=== PATIENT | female | born 1995 | race Caucasian/White ===

== ENCOUNTER 2017-09-20 16:02 | Emergency (ER) | payer OTHER ==
[~2017-09-20] VITALS: Ht 157.5 cm; Wt 60.9 kg
[2017-09-20] MEDS ORDERED: PRENTAB40 PO (16:10)
[2017-09-20] MEDS ORDERED: NS 1,000 ML IV ONE (17:15)
[2017-09-20] MEDS ORDERED: ACETAMINOPHEN 325 MG TAB PO ONE (17:15)
[2017-09-20] MEDS ORDERED: METOCLOPRAMIDE INJ 10MG/2ML VIAL (J2765) IV ONE (17:15)
[2017-09-20 17:28] LABS: BASO % 0.6 % (0.0-1.0); EOS # 0.1 10^3/uL (0.0-0.50); IMMATURE GRANULOCYTE % 0.2 % (0-0); LYMPH # 1.3 10^3/uL (1.5-6.5); MEAN CORPUSCULAR HEMOGLOBIN 29.4 pg (27.0-33.0); MEAN CORPUSCULAR HGB CONC 34.5 g/dl (32.0-36.5); MEAN CORPUSCULAR VOLUME 85.3 fl (80.0-96.0); MONO # 0.3 10^3/uL (0.0-0.8); NEUTROPHILS # 3.2 10^3/uL (1.8-7.7); NEUTROPHILS % 66.2 % (36.0-66.0); PLATELET COUNT, AUTOMATED 177 10^3/uL (150-450); WHITE BLOOD COUNT 4.8 10^3/uL (4.0-10.0)
[2017-09-20 18:07] LABS: ANION GAP 11 MEQ/L (8-16); BLOOD UREA NITROGEN 8 MG/DL (7-18); CALCIUM LEVEL 9.1 MG/DL (8.5-10.1); CARBON DIOXIDE LEVEL 25 MEQ/L (21-32); CHLORIDE LEVEL 103 MEQ/L (98-107); CREATININE FOR GFR 0.68 MG/DL (0.55-1.02); GLOMERULAR FILTRATION RATE > 60.0 (>60); GLUCOSE, FASTING 88 MG/DL (70-105); HCG, SERUM QUANTITATIVE 10997 MIU/ML; POTASSIUM SERUM 4.1 MEQ/L (3.5-5.1); SODIUM LEVEL 139 MEQ/L (136-145)
--- NOTE | 2017-09-20 18:49 | REP ---
FIRST TRIMESTER OB AND ENDOVAGINAL PROBE ULTRASOUND: 09/20/2017. Clinical history: Spotting in this first trimester . By dates she is 4 weeks 5 days. Transabdominal and endovaginal probes were utilized. Bladder is empty and cannot be evaluated. The uterus retroflexed and measures 7.6 x 5.1 x 6.3 cm. There is gestational sac with a mean sac diameter 8.4 mm corresponding to 5 weeks and 4 days. On EV probe within the sac is a yolk sac, but no definitive pole. There is no evidence of a subchorionic bleed. Right ovary is 2.8 x 2.5 x 2 cm with Doppler resistive index of 0.64. The left ovary is 3.4 x 2.3 x 3.1 cm with Doppler resistive index 0.46. On the left, there is a presumed corpus luteum cyst measuring 2 x 2 x 1.7 cm. There is no free fluid or solid adnexal mass. Impression: 1. Gestational sac noted with pole not evident, but a yolk sac seen. Findings suggest early IUP or pole not yet visible. By gestational sac size, 5 weeks 4 days, by LMP 4 weeks 5 days. Other possibilities would include blighted ovum or missed spontaneous . An ectopic cannot be entirely excluded at this time, although no compelling evidence for it. 2. Corpus luteum cyst left ovary 2 x 2 x 1.7 cm. Correlation with beta HCG and appropriate follow-up at appropriate interval with HCG and ultrasound may be helpful. Signed by Amol Villa MD 09/20/2017 08:47 P
[2017-09-20 19:20] VITALS: BP 111/53
== END 2017-09-20 19:24 | disposition home or self-care (01) ==
LOC: M ED 16:02
DX: O99.351 Diseases of the nervous system complicating pregnancy, first trimester (principal); G44.209 Tension-type headache, unspecified, not intractable; O26.851 Spotting complicating pregnancy, first trimester; Z3A.01 Less than 8 weeks gestation of pregnancy
CPT/HCPCS: 76801; 76817; 80048; 81001; 81025; 84702; 85025; 86901; 93976; 96374; 99284; J2765

== ENCOUNTER → 2017-09-23 | Outpatient (CLI) | payer OTHER ==
[~2017-09-23] MED LIST: PRENTAB40 PO
== END ==
LOC: M LAB 09:44
PROVIDERS: ATTEND Advanced Practice Midwife
DX: N91.2 Amenorrhea, unspecified (principal)

== ENCOUNTER 2017-12-26 09:04 | Emergency (ER) | payer OTHER ==
[2017-12-26] MEDS: ACETAMINOPHEN 325 MG TAB PO (09:38)
== END 2017-12-26 11:48 | disposition home or self-care (01) ==
LOC: M ED 09:04
DX: O9A.212 Injury, poisoning and certain other consequences of external causes complicating pregnancy, second trimester (principal); S39.91XA Unspecified injury of abdomen, initial encounter; W18.39XA Other fall on same level, initial encounter; Y92.014 Private driveway to single-family (private) house as the place of occurrence of the external cause; M25.551 Pain in right hip; M54.5 Low back pain; Z3A.18 18 weeks gestation of pregnancy
CPT/HCPCS: 76815

== ENCOUNTER 2018-05-04 18:21 | Outpatient (CLI) | payer OTHER | END 2018-05-04 19:55 | disposition home or self-care (01) | LOC: M LDO 18:21 | DX: O47.1 False labor at or after 37 completed weeks of gestation (principal); Z3A.37 37 weeks gestation of pregnancy | CPT/HCPCS: 59025 ==

== ENCOUNTER 2018-05-11 12:55 | Inpatient (IN) | payer OTHER ==
[2018-05-11] MEDS: LACTATED RINGER'S 1000 ML IV (14:05)
[2018-05-11 14:14] LABS: HEMATOCRIT 36.3 % (36.0-47.0); HEMOGLOBIN 11.7 g/dl (12.0-15.5); MEAN CORPUSCULAR HGB CONC 32.2 g/dl (32.0-36.5); MEAN CORPUSCULAR VOLUME 83.8 fl (80.0-96.0); PLATELET COUNT, AUTOMATED 143 10^3/uL (150-450); RED BLOOD COUNT 4.33 10^6/uL (4.00-5.40); RED CELL DISTRIBUTION WIDTH 14.4 % (11.5-14.5); WHITE BLOOD COUNT 10.3 10^3/uL (4.0-10.0)
[2018-05-11] MEDS: LR 1,000 ML IV (17:01)
[2018-05-11] MEDS ORDERED: FENTANYL 2MCG/ML ROPIVACAINE 0.2% IN 0.9% NACL 200ML IVBAG As Ordered (17:21)
[2018-05-11] MEDS ORDERED: ONDANSETRON 4MG/2ML VIAL (J2405) IV (18:15)
[2018-05-11] MEDS ORDERED: ePHEDrine SULFATE 25 MG/5 ML(5MG/ML) SYRINGE IV (18:15)
[2018-05-11] MEDS ORDERED: FENTANYL/ROPIVACAINE/NACL BAG 200 ML EPIDURAL (18:15)
[2018-05-11] MEDS ORDERED: EPIDURAL/PCA KEYS XX (18:15)
[2018-05-11] MEDS ORDERED: REFRIGERATOR IV KEYS XX (18:15)
[2018-05-11] MEDS ORDERED: diphenhydrAMINE INJ 50MG/ML VIAL (J1200) IV (18:15)
[2018-05-11] MEDS ORDERED: NALOXONE INJ 0.4 MG/1 ML VIAL (J2310) IV (18:15)
[2018-05-11] MEDS ORDERED: LACTATED RINGER'S 1000 ML IV (18:15)
[2018-05-11] MEDS ORDERED: EPIDURAL COMMENT XX (18:15)
[2018-05-11] MEDS ORDERED: OXYTOCIN DRIP 30 UNITS in APPROPRIATE DILUENT 1 EA IV (19:00)
[2018-05-12] MEDS ORDERED: ACETAMINOPHEN 500 MG TAB As Ordered (00:41)
[2018-05-12] MEDS: OXYTOCIN DRIP 30 UNITS in APPROPRIATE DILUENT 1 EA IV (01:17)
[2018-05-12] MEDS ORDERED: METOCLOPRAMIDE INJ 10MG/2ML VIAL (J2765) IV (01:30)
[2018-05-12] MEDS ORDERED: MEASLES,MUMPS,RUBELLA VACCINE INJ (MMR-II) (90707) SC (01:30)
[2018-05-12] MEDS ORDERED: RHOGAM 300 MCG (1500 IU) INJ (J2790) IM (01:30)
[2018-05-12] MEDS: IBUPROFEN 800 MG TAB PO ×3 (07:47→23:33)
[2018-05-12] MEDS: DOCUSATE SODIUM 100 MG CAP PO ×2 (08:13→20:37)
[2018-05-12] MEDS: PRENATAL VITAMINS CHEWABLE TABLET PO (08:13)
[2018-05-12] MEDS: ACETAMINOPHEN TAB 650MG DOSE (2X325MG) PO ×2 (12:16→20:37)
[2018-05-12] MEDS: DIBUCAINE 1% OINTMENT 30GM TOP (21:07)
[2018-05-13] MEDS: PRENATAL VITAMINS CHEWABLE TABLET PO (08:54)
[2018-05-13] MEDS: DOCUSATE SODIUM 100 MG CAP PO (08:54)
== END 2018-05-13 11:30 | disposition home or self-care (01) | DRG 775 ==
LOC: M LDO 12:55 → M OBS 05-12 03:20 → M LDI 13:38
PROVIDERS: Obstetrics & Gynecology
PROC: 10907ZC Drainage of Amniotic Fluid, Therapeutic from Products of Conception, Via Natural or Artificial Opening (ICD-10-PCS; 2018-05-11)
PROC: 10E0XZZ Delivery of Products of Conception, External Approach (ICD-10-PCS; principal; 2018-05-12)
DX: O80 Encounter for full-term uncomplicated delivery (principal); Z3A.38 38 weeks gestation of pregnancy; Z37.0 Single live birth

== ENCOUNTER 2018-06-29 05:26 | Emergency (ER) | payer OTHER ==
[2018-06-29 06:45] LABS: BASO % 0.4 % (0.0-1.0); EOS # 0.3 10^3/uL (0.0-0.50); EOS % 2.9 % (0.0-3.0); HEMATOCRIT 38.5 % (36.0-47.0); HEMOGLOBIN 12.8 g/dl (12.0-15.5); IMMATURE GRANULOCYTE % 0.2 % (0-3.0); LYMPH # 2.3 10^3/uL (1.5-6.5); LYMPH % 23.1 % (24.0-44.0); MEAN CORPUSCULAR HEMOGLOBIN 27.2 pg (27.0-33.0); MEAN CORPUSCULAR HGB CONC 33.2 g/dl (32.0-36.5); MEAN CORPUSCULAR VOLUME 81.7 fl (80.0-96.0); MONO # 0.6 10^3/uL (0.0-0.8); MONO % 6.2 % (0.0-5.0); NEUTROPHILS # 6.6 10^3/uL (1.8-7.7); NEUTROPHILS % 67.2 % (36.0-66.0); PLATELET COUNT, AUTOMATED 239 10^3/uL (150-450); RED BLOOD COUNT 4.71 10^6/uL (4.00-5.40); RED CELL DISTRIBUTION WIDTH 14.2 % (11.5-14.5); WHITE BLOOD COUNT 9.9 10^3/uL (4.0-10.0)
[2018-06-29] MEDS: KETOROLAC 30 MG/ML VIAL (J1885) IV (06:47)
[2018-06-29] MEDS: NS 1,000 ML IV (06:47)
[2018-06-29 06:51] LABS: KETONE, URINE AUTO RFX NEGATIVE (NEGATIVE); MUCUS, URINE RFX SMALL (NEGATIVE); NITRITE, URINE AUTO RFX NEGATIVE (NEGATIVE); RBC, URINE AUTO RFX 2 /HPF (0-3); SQUAM EPITHELIAL CELL UR AURFX 0 /HPF (0-6)
[2018-06-29 06:52] LABS: LEUKOCYTE ESTERASE UR AUTO RFX 2+ (NEGATIVE); WBC, URINE AUTO RFX 23 /HPF (0-3)
[2018-06-29 07:03] LABS: ALBUMIN 3.5 GM/DL (3.2-5.2); ALBUMIN/GLOBULIN RATIO 0.76 (1.00-1.93); ALKALINE PHOSPHATASE 111 U/L (45-117); ALT/SGPT 18 U/L (12-78); AMYLASE 42 U/L (25-115); ANION GAP 6 MEQ/L (8-16); AST/SGOT 10 U/L (7-37); BILIRUBIN,DIRECT 0.1 MG/DL (0.0-0.2); BILIRUBIN,TOTAL 0.6 MG/DL (0.2-1.0); BLOOD UREA NITROGEN 20 MG/DL (7-18); CALCIUM LEVEL 9.2 MG/DL (8.5-10.1); CARBON DIOXIDE LEVEL 27 MEQ/L (21-32); CHLORIDE LEVEL 105 MEQ/L (98-107); CREATININE FOR GFR 0.68 MG/DL (0.55-1.30); GLOMERULAR FILTRATION RATE > 60.0 (>60); GLUCOSE, FASTING 94 MG/DL (70-100); LIPASE 161 U/L (73-393); SODIUM LEVEL 138 MEQ/L (136-145); TOTAL PROTEIN 8.1 GM/DL (6.4-8.2)
[2018-06-29 08:57] LABS: D-DIMER QUANT 1222.4 ng/ml (<500)
[2018-06-29] MEDS ORDERED: ISOVUE-370 76% 100ML VIAL (Q9967) As Ordered (09:11)
== END 2018-06-29 09:59 | disposition home or self-care (01) ==
LOC: M ED 05:26
DX: N39.0 Urinary tract infection, site not specified (principal); J98.11 Atelectasis; E11.9 Type 2 diabetes mellitus without complications; R51 Headache
CPT/HCPCS: Q9967